=== PATIENT | male | born 1980 | race Two or more races ===

== ENCOUNTER 2018-07-18 12:53 | Emergency (ER) | payer OTHER ==
[2018-07-18 13:03] VITALS: BP 146/95
[2018-07-18] MEDS ORDERED: DEXAMETHASONE 10 MG/ML VIAL PO STA (14:04)
--- NOTE | 2018-07-18 14:07 | ED Physician Documentation ---
PD HPI LOWER EXT INJURY - Stated complaint Stated Complaint: RT KNEE PAIN - Chief complaint Chief Complaint: Trauma Ext - History obtained from History obtained from: Patient - History of Present Illness PD HPI LOW EXT INJURY LOCATION: Right, Knee Type of injury: Other (unkown) Where injury occurred: Home Timing - onset: How many days ago (2) Timing - duration: Days (2) Timing - details: Abrupt onset, Still present Improved by: Rest, Ice, Immobilization Worsened by: Moving, Palpating Associated symptoms: Swelling. No: Weakness, Numbness Contributing factors: No: Anticoagulated Similar symptoms before: Has not had sx before Recently seen: Not recently seen - Additional information Additional information: 37-year-old male with a history of arthritis to both of his knees awoke yesterday morning with pain in his right knee as well as some swelling. He has a lot of pain if he tries to straighten the knee out all the way and he has pain with weightbearing. He was very uncomfortable last night and barely able to sleep. He has not had this happen to him before. He does not know of any specific injury or overuse to his knee. He did awaken with his knee pain. He felt he may have slept on it wrong. Review of Systems Constitutional: denies: Fever Eyes: denies: Decreased vision Ears: denies: Ear pain Nose: denies: Congestion Throat: denies: Sore throat Respiratory: denies: Cough GI: denies: Vomiting : denies: Dysuria Skin: denies: Rash Musculoskeletal: reports: Joint pain, Joint swelling, Pain with weight bearing. denies: Neck pain, Back pain Neurologic: denies: Generalized weakness, Focal weakness, Numbness PD PAST MEDICAL HISTORY - Past Medical History Past Medical History: No - Past Surgical History Past Surgical History: No - Present Medications Home Medications: Ambulatory Orders Medication Instructions Recorded Confirmed Hydrocodone/Acetaminophen 1 - 2 each PO Q6H PRN #14 tablet 07/18/18 [Hydrocodon-Acetaminophen 5-325] - Allergies Allergies/Adverse Reactions: Allergies Allergy/AdvReac Type Severity Reaction Status Date / Time No Known Drug Allergies Allergy Verified 07/18/18 13:02 - Social History Does the pt smoke?: No Smoking Status: Never smoker Does the pt drink ETOH?: Yes Does the pt have substance abuse?: No - Immunizations Immunizations are current?: Yes - POLST Patient has POLST: No PD ED PE NORMAL - Vitals Vital signs reviewed: Yes (hypertensive ) - General General: Alert and oriented X 3, No acute distress, Well developed/nourished - HEENT HEENT: Atraumatic, PERRL, EOMI - Respiratory Respiratory: No respiratory distress - Derm Derm: Normal color, Warm and dry - Extremities Extremities: No deformity, No edema, Other (There is palpable effusion and there is pain with ROM testing. The ligaments are stable and distal n/v is intact. ) - Neuro Neuro: Alert and oriented X 3, concrete engineer 2-12 intact, No motor deficit, No sensory deficit, Normal speech Eye Opening: Spontaneous Motor: Obeys Commands Verbal: Oriented GCS Score: 15 - Psych Psych: Normal mood, Normal affect Results - Vitals Vitals: Vital Signs - 24 hr 07/18/18 13:01 Temperature 36.8 C Heart Rate 92 Respiratory 18 Rate Blood Pressure 146/95 H O2 Saturation 97 Oxygen O2 Source Room air - Rads (name of study) knee right Radiology: Prelim report reviewed (Impression: No fracture or subluxation.), EMP read indepedently, See rad report PD MEDICAL DECISION MAKING - ED course Complexity details: reviewed results, re-evaluated patient, considered differential, d/w patient ED course: 37-year-old male with swelling and pain to his right knee awoke this way. He does have history of arthritis in his knee does not have history of overuse he may have slept on this wrong and had an issue with the cartilage. He does not have joint effusion on x-ray examination. He does not have fever. Is placed onto crutches and I will have him follow-up with orthopedics. Departure - Departure Disposition: 01 Home, Self Care Clinical Impression: Internal derangement of knee Qualifiers: Laterality: right Qualified Code(s): M23.91 - Unspecified internal derangement of right knee Condition: Stable Instructions: ED Meniscal Injury Knee Poss Follow-Up: [facility] [Provider Group] Prescriptions: Hydrocodone/Acetaminophen [Hydrocodon-Acetaminophen 5-325] 1 - 2 each PO Q6H PRN #14 tablet PRN Reason: pain
--- NOTE | 2018-07-18 14:35 | XRAY Report ---
Reason: swelling and pain Procedure Date: 07/18/2018 Accession Number: [id number] / [id number] Procedure: XR - Knee 4 View RT CPT Code: FULL RESULT: EXAM: RIGHT KNEE RADIOGRAPHY EXAM DATE: 07/18/2018 02:18 PM. CLINICAL HISTORY: Swelling and pain. COMPARISON: None. TECHNIQUE: 4 views. FINDINGS: Bones: Normal. No fractures or bone lesions. Joints: Normal. No effusion. No subluxations. Soft Tissues: No abnormal soft tissue calcification. No joint effusion. IMPRESSION: No fracture or subluxation. RADIA
== END 2018-07-18 15:02 | disposition home or self-care (01) ==
LOC: ED 12:53
DX: M23.91 Unspecified internal derangement of right knee (principal)
CPT/HCPCS: 99283

== ENCOUNTER 2019-06-24 09:49 | Emergency (ER) | payer OTHER ==
[2019-06-24 10:01] VITALS: BP 139/96
--- NOTE | 2019-06-24 11:07 | ED Physician Documentation ---
PD HPI LOWER EXT INJURY - Stated complaint Stated Complaint: R FOOT PX - Chief complaint Chief Complaint: Ext Problem - History obtained from History obtained from: Patient - History of Present Illness PD HPI LOW EXT INJURY LOCATION: Right, Foot Type of injury: No: Fall, Twist, Blunt / blow Where injury occurred: Home Timing - onset: How many days ago (3) Timing - duration: Days (3) Timing - details: Gradual onset, Still present Improved by: Rest Worsened by: Moving, Palpating Associated symptoms: Swelling. No: Weakness, Numbness Review of Systems Constitutional: denies: Fever, Chills, Myalgias Skin: denies: Abrasion (s), Laceration (s) Neurologic: denies: Focal weakness, Numbness PD PAST MEDICAL HISTORY - Past Medical History Past Medical History: No Musculoskeletal: Gout - Past Surgical History Past Surgical History: No - Present Medications Home Medications: Ambulatory Orders Medication Instructions Recorded Confirmed Hydrocodone/Acetaminophen 1 - 2 each PO Q6H PRN #14 tablet 07/18/18 [Hydrocodon-Acetaminophen 5-325] Hydrocodone/Acetaminophen [Tabiona 1 each PO Q6H PRN #15 tablet 06/24/19 5-325 Tablet] Naproxen 500 mg PO BID #20 tablet 06/24/19 dexAMETHasone [Decadron] 4 mg PO DAILY #5 tablet 06/24/19 - Allergies Allergies/Adverse Reactions: Allergies Allergy/AdvReac Type Severity Reaction Status Date / Time No Known Drug Allergies Allergy Verified 06/24/19 09:59 - Social History Does the pt smoke?: No Smoking Status: Never smoker Does the pt drink ETOH?: Yes Does the pt have substance abuse?: No - Immunizations Immunizations are current?: Yes - POLST Patient has POLST: No PD ED PE NORMAL - Vitals Vital signs reviewed: Yes - General General: Alert and oriented X 3, No acute distress, Well developed/nourished - Derm Derm: Normal color, Warm and dry - Extremities Extremities: Other (dorsum right foot with mild redness and moderate tenderness. Toes not tender. No skin sores nor rash. ) - Neuro Neuro: Alert and oriented X 3, No motor deficit, No sensory deficit, Normal speech Results - Vitals Vitals: Vital Signs - 24 hr 06/24/19 09:59 Temperature 36.7 C Heart Rate 63 Respiratory 15 Rate Blood Pressure 139/96 H O2 Saturation 97 Oxygen O2 Source Room air PD MEDICAL DECISION MAKING - ED course Complexity details: considered differential (presume gout. He has had gout in past, no noted injury to foot currently, and with some redness and tender dorsal foot. I am not sure why [facility] did not treat him with NSAIDs or anything yesterday, but only got blood tests. ), d/w patient Departure - Departure Disposition: 01 Home, Self Care Clinical Impression: Foot pain Qualifiers: Laterality: right Qualified Code(s): M79.671 - Pain in right foot Gout attack Qualifiers: Gout site: foot Gout etiology: unspecified cause Laterality: right Qualified Code(s): M10.9 - Gout, unspecified Condition: Stable Record reviewed to determine appropriate education?: Yes Instructions: ED Arthritis Gout Follow-Up: Stephen Galo MD [Primary Care Provider] - Prescriptions: dexAMETHasone [Decadron] 4 mg PO DAILY #5 tablet Hydrocodone/Acetaminophen [Tabiona 5-325 Tablet] 1 each PO Q6H PRN #15 tablet PRN Reason: Pain Naproxen 500 mg PO BID #20 tablet Comments: Minimal walking and standing for the next 2 to 3 days to help reduce discomfort. Anti-inflammatories of naproxen twice daily and Decadron steroid daily until resolved over the next few days. Add Tylenol or hydrocodone if needed for pain. Recheck if not improved well over the next few days. Follow-up with your primary care regarding the blood tests they did/etc. Forms: Activity restrictions Discharge Date/Time: 06/24/19 11:52
[2019-06-24] MEDS ORDERED: CHERRY SYRUP 10 ML UDC PO ONE (11:30)
[2019-06-24] MEDS ORDERED: DEXAMETHASONE 10 MG/ML VIAL PO STA (11:30)
[2019-06-24] MEDS ORDERED: ACETAMINOPHEN 325 MG TABLET PO STA (11:30)
[2019-06-24] MEDS ORDERED: NAPROXEN 250 MG TABLET PO STA (11:30)
== END 2019-06-24 11:52 | disposition home or self-care (01) ==
LOC: ED 09:49
DX: M10.9 Gout, unspecified (principal)
CPT/HCPCS: 99283; A9270